=== PATIENT | male | born 2000 | race Caucasian/White ===

== ENCOUNTER 2025-02-20 09:53 | Day surgery (SDC) | payer OTHER, SELFPAY ==
[2025-02-15 12:11] VITALS: BMI 30.1
--- NOTE | 2025-02-15 12:19 | SUR.PREOP ---
[facility] has started construction of its new state of the art ER which will open Spring 2026. With this, we anticipate parking may be a challenge for some our surgical patients and families. Parking spaces are limited but are available for all Surgical, obstetrics, and ER patients sharing this lot. If you arrive and find you are having a hard time finding a parking space, please note that we understand the challenges, please drive around the hospital and park near Hospital Entrance 1. When you enter this entrance, you can ask a volunteer to direct or take you back to the surgical waiting area to check in. We appreciate everyone?s understanding of these expected challenges while we build for your future. Report to the Outpatient Waiting Room, entrance under the green pavilion located off [address], at time 1000 on date 02/20/25. Planned Procedure Time: 1200.? Time changes happen often and if your time is changed the preop area will call you the afternoon before. - You and your visitor will be asked to self-screen and do not enter if you have any COVID symptoms. Please call surgeon if you need to reschedule. - A mask is optional within the hospital at this time. Patients may have clear liquids (water, carbonated beverages, clear teas, apple juice) until 3 hours prior to surgery with a maximum of 20 ounces. - No food from midnight until time of surgery and no smoking, or chewing tobacco (or any form of nicotine). No chewing gum, candy or mints. - Infants may have breast milk until 4 hours before surgery, formula 6 hours prior to surgery. - Children will be allowed to drink immediately following surgery.? If applicable, please bring a bottle or sippy cup to assist with drinking. Juice, water, soda, and popsicles are readily available.? For infants on formula, please bring formula the day of surgery.? Pacifiers are allowed. Take only the following medications with a SIP of water on the morning of surgery: ____n/a DO NOT STOP ANY OF YOUR OTHER PRESCRIPTION MEDICATIONS PRIOR TO SURGERY EXCEPT THE FOLLOWING Hold all vitamins and supplements for 3 days per anesthesiologist. Medications to discontinue per physician n/a Date to take last dose Please no make-up, nail slovak, hairspray, perfume, deodorant, or body powder the day of surgery.? No jewelry (including any body piercings) or valuables the day of surgery, leave them at home.? Please take a shower or bath the night before, or the morning of, surgery with an antibacterial soap.? Wear comfortable, loose fitting clothing.? Children are encouraged to wear pajamas. - Jewelry must be removed prior to entering the operating room.? Rings and piercings that are not removed may be cut off. - The hospital will not accept responsibility for valuables.? - Please leave all valuables, including medications, at home the day of surgery. If you are going home after surgery, a licensed sprinkling truck driver must drive you home.? - NO public transportation without another adult if you receive anesthesia. - We recommend that an adult stay with you for 24 hours following discharge. - We also recommend that you do not drive, make important decision, drink alcoholic beverages, or take any drugs that were not prescribed by your health care provider for at least 24 hours after your discharge time. For Pediatric surgeries, we recommend two adults accompany the child home. Follow any additional instructions given to you from your surgeon. Telephone instructions given to _patient_and asked if any additional questions and then verbalized understanding. Patient advised to call surgeon office or pre surgery nurse liaison [phone] if any additional questions.
[2025-02-20] VITALS (8 sets, daily range): BP systolic 124–148; BP diastolic 71–85; PULSE 80–97; RESP 14–16; TEMP 36.2–36.4; O2SAT 98–100
[2025-02-20] MEDS: LACTATED RINGERS 1,000 ML 30 ML IV CONT ×2 (11:00→16:16)
[2025-02-20] MEDS: KETOROLAC 15 MG/ML VIAL (*BKC) IV PUSH ×2 (11:00→15:48)
[2025-02-20] MEDS: ACETAMINOPHEN 500 MG TABLET 1000 MG PO (11:00)
--- NOTE | 2025-02-20 12:05 | WPDANESEPPF ---
Anes - Initial Pre Proc Eval Procedure: Operation Date: 02/20/25 12:00 Proposed Procedures p Robotic Assisted Laparoscopic Right Inguinal Hernia Repair with Mesh, Possible Left Inguinal Hernia Repair, Possible Open - Azar Sands MD Date/Time: 02/20/25 12:05 Surgeon: Azar Sands MD Pre Op Diagnosis: reduc Rt Ing scrotal hernia Patient Data Age: 24 Gender: M Height: 1.78 m Weight: 96 kg Last Vital Signs Temp 36.4 C L 02/20/25 11:00 Pulse 82 02/20/25 11:00 Resp 16 02/20/25 11:00 BP 124/73 02/20/25 11:00 Pulse Ox 98 02/20/25 11:00 O2 Del Method Room Air 02/20/25 11:00 Allergies Allergy/AdvReac Type Severity Reaction Status Date / Time No Known Allergies Allergy Verified 02/20/25 11:34 Home Medications ?Medication ?Instructions ?Recorded ?Confirmed ?Type buprenorphine 8 mg-naloxone 2 mg 1 film buccal DAILY 01/05/25 02/15/25 History sublingual film hydroxyzine HCl 25 mg tablet 25 mg PO BID 01/05/25 02/15/25 History trazodone 50 mg tablet 50 mg PO QHS 01/05/25 02/15/25 History Laboratory Tests 02/20/25 11:10 Blood Type A Positive Antibody Screen Negative Patient hx anesthesia problems: none Family hx anesthesia problems: none Results Review: All pre-operative results and documents have been reviewed as part of the pre-operative evaluation. [facility] Past Medical History Medical History Right inguinal hernia Depression PTSD (post-traumatic stress disorder) Over weight PEREZ (generalized anxiety disorder) ADHD Anxiety Nicotine dependence due to vaping tobacco product Substance abuse Family History Family History Mother Alcoholism Social History Social History Smoking status: Unknown if ever smoked Tobacco type: e-cigarettes/vaping Other substance usage details: h/o substance use Anes - Eval Final PreProcedure Day of Procedure 02/20/25 12:05 Patient weight: overweight Heart: regular rate and rhythm Lungs: clear to auscultation Airway: Mallampati scale class II Neurological: alert and oriented Last oral intake: >/= 8 hours ASA classification: III Emergent: no Anesthetic plan: proceed Anesthesia type and monitoring: general ETT and standard monitoring Results Review: All pre-operative results and documents have been reviewed as part of the pre-operative evaluation. Informed Consent: The patient's anesthetic plan and its attendant risks and benefits were discussed with the patient/family/POA. Questions were solicited and answers provided to the satisfaction of the patient/family/POA.
--- NOTE | 2025-02-20 12:11 | PM.IMHP2 ---
H&P: HPI History of Present Illness Date/Time: 02/20/25 12:11 Chief Complaint: Right inguinal hernia Narrative: Grayson is a 24 y/o male who presents to the office at the request of Sonny Hoyos APN for an evaluation of a right groin bulge. Patient reports he first noticed bulging approximately 4 years ago and the bulge has increased in size since that time. He denies pain and states the bulge is reducible. He states he tolerates a normal diet and has regular BM's. Patient has history of opioid dependence and will not take pain medication after surgery. Review of Systems Review of Systems: The remainder of the review of systems to include constitutional, HEENT, cardiovascular, respiratory, GI, , integumentary, musculoskeletal, endocrine, immunologic, hematologic, psychiatric, and neurologic are all negative except for which is mentioned above in the HPI. [facility] Past Medical History Medical History Right inguinal hernia Depression PTSD (post-traumatic stress disorder) Over weight PEREZ (generalized anxiety disorder) ADHD Anxiety Nicotine dependence due to vaping tobacco product Substance abuse Family History Family History Mother Alcoholism Social History Social History Smoking status: Unknown if ever smoked Tobacco type: e-cigarettes/vaping Other substance usage details: h/o substance use Meds Home Medications and Allergies Home Medications ?Medication ?Instructions ?Recorded ?Confirmed ?Type buprenorphine 8 mg-naloxone 2 mg 1 film buccal DAILY 01/05/25 02/15/25 History sublingual film hydroxyzine HCl 25 mg tablet 25 mg PO BID 01/05/25 02/15/25 History trazodone 50 mg tablet 50 mg PO QHS 01/05/25 02/15/25 History Allergies Allergy/AdvReac Type Severity Reaction Status Date / Time No Known Allergies Allergy Verified 02/20/25 11:34 Vital Signs Vital Signs - 24 hr 02/20/25 11:00 Temperature 36.4 C L Pulse Rate 82 Respiratory Rate 16 Blood Pressure 124/73 Pulse Oximetry 98 Oxygen Delivery Room Air Exam Const: General: comfortable and no acute distress HENMT: Ears: TM's normal bilaterally Face/Nose/Sinus: Normal nares present Mouth: Yes moist mucous membranes Eyes: General: appearance normal, both eyes and all related structures Sclera: sclerae normal Pupils: Equal, round and reactive pupils present EOM: EOMs intact bilaterally Neck: Neck: supple and no JVD Resp: Effort & Inspection: normal respiratory effort Auscultation: clear to auscultation bilaterally Cardio: Rate: regular rate Rhythm: regular rhythm GI: GI Palp: Yes Soft to palpation, No Firmness to palpation present (GI), No Tenderness to palpation present (GI) and No Guarding due to palpation present (GI) Other: Patient has a large, partially reducible right inguinal scrotal hernia. Non tender, no testicular masses. No evidence of left inguinal hernia. Skin: General skin exam: normal color and no rashes or lesions noted Neuro: General: gait normal Speech: normal speech Motor exam (neuro): 5/5 motor strength present throughout Sensory Exam: normal sensation Extrem: General: normal to inspection Psych: Mental Status: mental status grossly normal Affect: normal affect Assessment and Plan Assessment and plan (1) Reducible right inguinal hernia: Code(s): K40.90 - Unilateral inguinal hernia, without obstruction or gangrene, not specified as recurrent Status: Acute Assessment and Plan: I have reviewed office notes from Sonny Hoyos APN prior to patient visit today. long standing right inguinal scrotal hernia. Based on exam, I have recommended a robotic assisted laparoscopic right inguinal hernia repair with mesh, possible left inguinal hernia repair, possible open, to be done under general anesthesia as an outpatient. The procedure was discussed in detail including the use of mesh, general description, and usual course of recovery. Risks of recurrence, infection, postop bleeding, prolonged postop pain, possible need to return to surgery were discussed as well. Patient has a history of opioid dependence and requests no narcotics be prescribed after surgery. All questions were answered. Patient would like to proceed. Follow-up 2 weeks postoperatively.
--- NOTE | 2025-02-20 12:14 | WPDHPUPDATE1 ---
History and Physical Update Update Date/Time: 02/20/25 12:14 History and Physical has been reviewed, including an updated exam of the patient. There are NO changes in the patient's condition. Risks, benefits, and alternatives have been discussed and questions answered. Patient agrees to proceed with procedure.
[2025-02-20] MEDS: ceFAZolin 2 GM in SODIUM CHLORIDE 0.9% IV 50 ML 100 ML IVPB (13:28)
[2025-02-20] MEDS: LIDO 1%/EPINEPHRINE 1:100,000 50 ML VIAL (14:13)
[2025-02-20] MEDS: BUPivacaine HCL 0.5% 10 ML AMP 30 ML INFILTRATE (14:14)
[2025-02-20] MEDS: fentaNYL CITRATE INJ (*CRX) 100 MCG/2 ML VIAL 25 MCG IV PUSH ×2 (16:35→16:40)
--- NOTE | 2025-02-21 14:35 | P.OP_ITS ---
Procedure Note - Detailed Date of Procedure 02/20/25 Pre-op Diagnosis Incarcerated right inguinal scrotal hernia. Post-op Diagnosis Same Procedure Performed Robotic assisted laparoscopic incarcerated right inguinal hernia repair with Bard 3D mid weight mesh. Surgeon Azar Sands MD Cosmetic Sales Assistant Ingrid Miles [facility] Anesthesia General Indications Patient is a 24-year-old white male presented to the office with complaints of a large bulge in the right groin region. On examination he had extension of what appeared to be a right inguinal hernia into the scrotum which could only partially be reduced. He presents now for robotic assisted laparoscopic repair with mesh. Findings Patient very large indirect right inguinal hernia with incarcerated omentum within the hernia sac. No bowel was involved with the incarcerated contents. No evidence of left inguinal hernia was seen. No direct or femoral component was identified with the right inguinal hernia. Description of Procedure After informed consent was obtained patient brought to the operating room was placed supine position and general endotracheal anesthesia was administered. The abdomen and the bilateral groin regions were then prepped and draped usual sterile fashion. Time-out was then performed correctly identifying the patient as well as procedure to be performed. He was given perioperative IV antibiotics. I then proceeded to place a 5mm Optiview port in left upper quadrant under direct visualization. Once inside the abdomen insufflated to adequate pneumoperitoneum of 15mmHg of CO2. The patient was then placed in 15degree head-down Trendelenburg position to allow the bowel to fall out the pelvis. Laparoscopic evaluation of the bilateral groins viewed no evidence of left inguinal hernia. On the right groin region there was a large indirect hernia defect with incarcerated omentum within the hernia sac. I then placed additional robotic 8mm trocar ports across the mid abdomen under direct visualization. The 5mm left quadrant trocar port was switched out to a 10mm bedside export sales assistant trocar port. The [employer] Niels robot was then brought to the patient's bedside and docked. The robotic arms were then attached robotic ports. Robotic instruments were then advanced into the abdomen under direct visualization. I then scrubbed out the procedure sent down the robotic console to perform the dissection. I initially started by reducing the omentum which was incarcerated within the indirect right inguinal hernia sac. This was done with electrocautery and the omentum was made hemostatic. I started by making a preperitoneal flap starting anterior medial to the right anterior superior iliac spine. This tunnel robotic hook cautery. I extended the incision across the lower abdomen and across the right half of the umbilical ligament. Dissection was carried out in the preperitoneal plane distally until identified and reach the right pubic tubercle. I then dissected down into the space of Retzius for couple cm across the midline of the pubic symphysis. I then proceeded to reduce the hernia sac out of the right will canal and dissected out. It was a very large hernia sac extending down into the scrotum. It was chronically incarcerated and thickened but I eventually was able to from the other cord structures and the vas deferens and testicular vessels were preserved without injury. Also dissection was done with the robotic hook cautery. Significant portions of the cremasteric muscle were divided to identified the hernia sac as the cremasteric muscles were also thickened due to the chronic incarceration of the hernia sac. Once I had the sac completely dissected free the other cord structures I everted it. I then checked and there was no evidence of a significant cord lipoma in the inguinal canal. I then dissected the peritoneal flap proximally up onto the right psoas muscle until I felt that a piece of mesh could be placed without curling up the proximal edge of the mesh with closing the peritoneal flap. I then measured the space and I felt that a large piece of Bard 3D mid weight mesh measuring [id number] would be appropriate for the repair. As the indirect hernia was so large and the internal ring with so patulous I decided to partially close the internal ring opening with a running absorbable 2-0 V lock suture to prevent excessive parachuting of the mesh into the inguinal canal. The mesh was then brought into the operative field and then spread out to cover the home myopectineal orifice. Medially the mesh was then secured to the tissues around the pubic tubercle. Laterally the mesh was secured to the muscle fibers anterior medial to the right anterior superior iliac spine with a 2-0 Vicryl suture. A 3rd suture was placed to approximate mesh to the edge of the internal ring opening. The mesh laid out very nicely and was well secured. I then pulled up the peritoneal flap and the proximal edge of the mesh did not roll up with closure of the flap. I then proceeded to suture close the peritoneal flap by placing a running absorbable 2 0V lock suture to approximate the edges of the flap. The very large redundant hernia sac was tacked up with the closure of the peritoneum. I then checked and there was no bowel injury. I then removed all the de Niels instruments from the abdomen and the robot from the patient's bedside. I then scrubbed back into the procedure and then proceeded to remove all the trocar ports under direct visualization. Trocar ports at the umbilicus and left upper quadrant were then closed at the anterior fascial level utilizing interrupted 2-0 Vicryl sutures. All the port sites were irrigated sterile saline solution and closed at the skin level utilizing a running subcuticular 4-0 Monocryl suture. The incisions were then cleaned and skin glue was applied. The patient tolerated the procedure well no complications. All sponges, needles, and instrument counts were correct at the end procedure. EBL was _20__cc. The patient was awakened and taken to recovery in stable and satisfactory condition. Implants Large Bard 3D mid weight mesh measuring [id number] oriented for right groin region placed in the preperitoneal position. Estimated Blood Loss 20 Drains No Packing No Pathology None sent Complications No immediate complications Condition Stable Disposition PACU [facility] Billing Surgery - Charge Forward: Surgery Billing
== END 2025-02-20 18:28 | disposition home or self-care (01) ==
PROVIDERS: PCP Registered Nurse; Visit Provider Surgery
PROC: 8E0Y4CZ Robotic Assisted Procedure of Lower Extremity, Percutaneous Endoscopic Approach (ICD-10-PCS; CPT 49650; principal; 2025-02-20 12:00)
DX: K40.30 Unilateral inguinal hernia, with obstruction, without gangrene, not specified as recurrent (principal)
CPT/HCPCS: 49650; S2900; 36415; 86850; 86900; 86901; J0690; A9270; C1781; J1100; J1885; J2004; J2250; J2405; J2704; J3010; J7030; J7120